=== PATIENT | female | born 1980 | race Caucasian/White ===

== ENCOUNTER 2018-01-23 05:23 | Emergency (ER) | payer BC ==
--- NOTE | 2018-01-23 05:39 | Emergency Department Record ---
History of Present Illness - General Chief Complaint: Chest Pain Stated Complaint: CHEST PAIN Time Seen by Provider: 01/23/18 05:32 Source: Patient Mode of Arrival: Wheelchair Limitations: No limitations - History of Present Illness Initial Comments: 37 yo female presents to ED for evaluation of chest pain symptoms that woke her up from sleep approximately 90 minutes ago. Patient describer her symptoms as "pressure" in the chest, denies shortness of breath or lower extremity edema symptoms. Patient denies fevers, chills, or cough symptoms. Patient denies health problems at her baseline. MD Complaint: Chest pain Onset/Timin -: Minutes(s) Onset: During rest Pain Location: Left chest Severity: Moderate Severity scale (1-10): 5 Quality: Heaviness Consistency: Constant Improves With: Nothing Worsens With: Nothing - Related Data On Oral Contraceptives: No Home Medications Medication Instructions Recorded Confirmed Last Taken Cholecalciferol (Vitamin D3) 5,000 unit PO DAILY 01/23/18 01/23/18 Unknown [Vitamin D3] Allergies Allergy/AdvReac Type Severity Reaction Status Date / Time No Known Drug Allergies Allergy Unverified 01/04/18 14:23 Travel Screening - Travel/Exposure Within Last 30 Days Have you traveled within the last 30 days?: No - Travel/Exposure Within Last Year Have you traveled outside the [place] in the last year?: No - Additonal Travel Details Have you been exposed to anyone with a communicable illness?: No - Travel Symptoms Symptom Screening: None Review of Systems Constitutional: Denies: Chills, Fever, Malaise, Night sweats Eyes: Denies: Eye discharge, Eye pain ENT: Denies: Congestion, Ear pain, Epistaxis Respiratory: Denies: Cough, Dyspnea Cardiovascular: Reports: Chest pain. Denies: Dyspnea on exertion Endocrine: Denies: Fatigue, Heat or cold intolerance Gastrointestinal: Denies: Abdominal pain, Nausea, Vomiting Genitourinary: Denies: Incontinence, Retention Musculoskeletal: Denies: Arthralgia, Back pain, Gout, Joint swelling Skin: Denies: Bruising, Change in color Neurological: Denies: Abnormal gait, Confusion, Headache, Seizure Psychiatric: Denies: Anxiety Hematological/Lymphatic: Denies: Anemia, Blood Clots Past Medical History - SOCIAL HISTORY Smoking Status: Current every day smoker Alcohol Use: Heavy Alcohol Use Comment: 5-6 drinks per day Drug Use: None - RESPIRATORY Hx Respiratory Disorders: No - CARDIOVASCULAR Hx Cardio Disorders: No - NEURO Hx Neuro Disorders: No - GI Hx GI Disorders: No - Hx Genitourinary Disorders: No - ENDOCRINE Hx Endocrine Disorders: No - MUSCULOSKELETAL Hx Musculoskeletal Disorders: No - PSYCH Hx Psych Problems: No - HEMATOLOGY/ONCOLOGY Hx Hematology/Oncology Disorders: No Family Medical History Any Significant Family History?: No Physical Exam - General General Appearance: Alert, Oriented x3, Cooperative, No acute distress, Other ( clinically intoxicated on examination) Limitations: No limitations - Head Head exam: Atraumatic, Normocephalic, Normal inspection Head exam detail: negative: Abrasion, Contusion, Carter's sign, General tenderness, Hematoma, Laceration - Eye Eye exam: Normal appearance. negative: Conjunctival injection, Periorbital swelling, Periorbital tenderness, Scleral icterus - ENT Ear exam: negative: Auricular hematoma, Auricular trauma Nasal Exam: negative: Active bleeding, Discharge, Dried blood, Foreign body Mouth exam: negative: Drooling, Laceration, Tongue elevation - Neck Neck exam: Normal inspection. negative: Meningismus, Tenderness - Respiratory Respiratory exam: Normal lung sounds bilaterally. negative: Rales, Respiratory distress, Rhonchi, Stridor - Cardiovascular Cardiovascular Exam: Regular rate, Normal rhythm, Normal heart sounds - GI/Abdominal GI/Abdominal exam: Soft. negative: Rebound, Rigid, Tenderness - Rectal Rectal exam: Deferred - exam: Deferred - Extremities Extremities exam: Normal inspection. negative: Calf tenderness, Pedal edema, Tenderness - Back Back exam: Denies: CVA tenderness (R), CVA tenderness (L) - Neurological Neurological exam: Alert, Normal gait, Oriented X3 - Psychiatric Psychiatric exam: Normal affect, Normal mood - Skin Skin exam: Normal color. negative: Abrasion Type of lesion: negative: abrasion Course Vital Signs 01/23/18 05:24 Temperature 98.0 F Pulse Rate 104 H Respiratory 20 Rate Blood Pressure 153/89 Pulse Ox 99 - Reevaluation(s) Reevaluation #1: 01/23/18 05:38 EKG: NSR 100 Normal axis, normal intervals No acute ST-T wave changes Reevaluation #2: 01/23/18 06:42 Labs reviewed: Alcohol 0.022 CO2 20 AG 21 Labs are grossly unremarkable for an acute process Patient was updated on all results thus far, will plan on repeat Troponin at 10: 30 this morning. Case was discussed with oncoming provider, will assume care and disposition at this time pending repeat Troponin. Medical Decision Making - Lab Data Result diagrams: 01/23/18 05:45 01/23/18 05:45 Disposition Clinical Impression: Chest pain Qualifiers: Chest pain type: unspecified Qualified Code(s): R07.9 - Chest pain, unspecified Disposition: Home, Self-Care Condition: (2) Stable Instructions: Chest Pain (ED) Forms: Patient Portal Access Quality - Quality Measures Quality Measures: N/A - Blood Pressure Screening Does Patient Have Any of the Following: No Blood Pressure Classification: Pre-Hypertensive BP Reading Systolic Measurement: 153 Diastolic Measurement: 89 Screening for High Blood Pressure: < Pre-Hypertensive BP, F/U Documented > [ G8950] Pre-Hypertensive Follow-up Interventions: Referral to alternative/primary care provider.
[2018-01-23] MEDS: ASPIRIN 81 MG CHEWABLE TABLET PO ONE (05:47)
[2018-01-23 05:52] LABS: BASO % 0.9 % (0-6); EOS % 4.3 % (0-6); GRAN % 53.6 % (47-80); HEMATOCRIT 37.7 % (35.0-47.0); HEMOGLOBIN 12.6 gm/dl (11.6-16.0); LYMPH % 35.6 % (16-45); MEAN CELL VOLUME 98.2 fl (81-97); MEAN CORPUSCULAR HEMOGLOBIN 32.8 pg (27-33); MEAN CORPUSCULAR HGB CONC 33.4 g/dl (32-36); MEAN PLATELET VOLUME 9.9 fl (7.4-10.4); MONO % 5.6 % (0-9); PLATELET COUNT 353 K/uL (130-400); RED BLOOD COUNT 3.84 M/uL (3.80-5.40); RED CELL DISTRIBUTION WIDTH 13.5 % (11.5-14.5); WHITE BLOOD COUNT W/O DIFF 9.3 K/uL (4.2-12.2)
[2018-01-23 06:05] LABS: BILIRUBIN,TOTAL < 0.20 mg/dL (0.2-1.0); BLOOD UREA NITROGEN 7 mg/dL (6-20); CREATININE 0.7 mg/dL (0.5-0.9); EST GLOMERULAR FILTRATION RATE > 60 mL/min
[2018-01-23 06:06] LABS: ALCOHOL 0.022 g/dL (0-0.010); TOTAL PROTEIN 7.1 g/dL (6.6-8.7)
[2018-01-23 06:08] LABS: GLUCOSE,RANDOM 103 mg/dL (74-109)
[2018-01-23 06:10] LABS: ALB/GLOB RATIO 1.2 (1.1-1.8); ALBUMIN 3.9 g/dL (4.0-5.0); ALT/SGPT 11 U/L (<33); AST/SGOT 19 U/L (10.0-35.0)
[2018-01-23 06:11] LABS: ALKALINE PHOSPHATASE 75 U/L (35-104)
--- NOTE | 2018-01-23 07:15 | Emergency Department Record ---
History of Present Illness - General Chief Complaint: Chest Pain Stated Complaint: CHEST PAIN Time Seen by Provider: 01/23/18 05:32 Source: Patient Mode of Arrival: Wheelchair Limitations: No limitations - History of Present Illness Initial Comments: took over from Dr. Boss at 7 am and patient returning from [facility] and she is resting and comfortable and she states some anterior upper left chest pain. reviewed EKG no acute changes. Labs reviewed cardiac enzymes edinson times one and awaiting cardiac lab second set potassium 3.3 and alcohol 0.022. Patient states dull chest pain which started at 4 am and some discomfort in her chest and she had 5 vodka drinks last night. Smokes 1ppd. The pain was reproducible when I raised her left arm up over her head and she works at [employer] and lifts things alot with her arms. Onset/Timin -: Minutes(s) Onset: During rest Pain Location: Left chest Severity: Moderate Severity scale (1-10): 5 Quality: Heaviness Consistency: Constant Improves With: Nothing Worsens With: Nothing - Related Data On Oral Contraceptives: No Home Medications Medication Instructions Recorded Confirmed Last Taken Cholecalciferol (Vitamin D3) 5,000 unit PO DAILY 01/23/18 01/23/18 Unknown [Vitamin D3] Previous Rx's Medication Instructions Recorded Naproxen [Naprosyn] 500 mg PO BID #20 tablet 01/23/18 Allergies Allergy/AdvReac Type Severity Reaction Status Date / Time No Known Drug Allergies Allergy Unverified 01/04/18 14:23 Travel Screening - Travel/Exposure Within Last 30 Days Have you traveled within the last 30 days?: No - Travel/Exposure Within Last Year Have you traveled outside the [place] in the last year?: No - Additonal Travel Details Have you been exposed to anyone with a communicable illness?: No - Travel Symptoms Symptom Screening: None Review of Systems Constitutional: Denies: Chills, Fever, Malaise, Night sweats Eyes: Denies: Eye discharge, Eye pain ENT: Denies: Congestion, Ear pain, Epistaxis Respiratory: Denies: Cough, Dyspnea Cardiovascular: Reports: Chest pain. Denies: Dyspnea on exertion Endocrine: Denies: Fatigue, Heat or cold intolerance Gastrointestinal: Denies: Abdominal pain, Nausea, Vomiting Genitourinary: Denies: Incontinence, Retention Musculoskeletal: Denies: Arthralgia, Back pain, Gout, Joint swelling Skin: Denies: Bruising, Change in color Neurological: Denies: Abnormal gait, Confusion, Headache, Seizure Psychiatric: Denies: Anxiety Hematological/Lymphatic: Denies: Anemia, Blood Clots Past Medical History - SOCIAL HISTORY Smoking Status: Current every day smoker Alcohol Use: Heavy Alcohol Use Comment: 5-6 drinks per day Drug Use: None - RESPIRATORY Hx Respiratory Disorders: No - CARDIOVASCULAR Hx Cardio Disorders: No - NEURO Hx Neuro Disorders: No - GI Hx GI Disorders: No - Hx Genitourinary Disorders: No - ENDOCRINE Hx Endocrine Disorders: No - MUSCULOSKELETAL Hx Musculoskeletal Disorders: No - PSYCH Hx Psych Problems: No - HEMATOLOGY/ONCOLOGY Hx Hematology/Oncology Disorders: No Family Medical History Any Significant Family History?: No Physical Exam - General General Appearance: Alert, Oriented x3, Cooperative, No acute distress Limitations: No limitations - Head Head exam: Normal inspection - Eye Eye exam: Normal appearance, PERRL Pupils: Normal accommodation - ENT ENT exam: Normal exam, Mucous membranes moist, Normal external ear exam, Normal orophraynx, TM's normal bilaterally Ear exam: Normal external inspection. negative: External canal tenderness Nasal Exam: Normal inspection. negative: Discharge, Sinus tenderness Mouth exam: Normal external inspection, Tongue normal Teeth exam: Normal inspection. negative: Dental caries Throat exam: Normal inspection. negative: Tonsillar erythema, Tonsillar exudate - Neck Neck exam: Normal inspection, Full ROM. negative: Tenderness - Respiratory Respiratory exam: Normal lung sounds bilaterally. negative: Respiratory distress - Cardiovascular Cardiovascular Exam: Regular rate, Normal rhythm, Normal heart sounds - GI/Abdominal GI/Abdominal exam: Soft, Normal bowel sounds. negative: Tenderness - Rectal Rectal exam: Deferred - exam: Deferred - Extremities Extremities exam: Normal inspection, Full ROM, Normal capillary refill. negative: Tenderness - Back Back exam: Reports: Normal inspection, Full ROM. Denies: Muscle spasm, Rash noted, Tenderness - Neurological Neurological exam: Alert, Normal gait, Oriented X3, Reflexes normal - Psychiatric Psychiatric exam: Normal affect, Normal mood - Skin Skin exam: Dry, Intact, Normal color, Warm Course Vital Signs 01/23/18 01/23/18 01/23/18 05:24 05:52 06:06 Temperature 98.0 F Pulse Rate 104 H Pulse Rate [ 88 89 [employer] ] Respiratory 20 20 20 Rate Blood Pressure 153/89 Blood Pressure 125/85 130/77 [Left Arm] Pulse Ox 99 99 98 Medical Decision Making - Lab Data Result diagrams: 01/23/18 05:45 01/23/18 05:45 Lab Results 01/23/18 01/23/18 01/23/18 Range/Units 05:35 05:45 05:45 WBC 9.3 (4.2-12.2) K/uL RBC 3.84 (3.80-5.40) M/uL Hgb 12.6 (11.6-16.0) gm/dl Hct 37.7 (35.0-47.0) % MCV 98.2 H (81-97) fl MCH 32.8 (27-33) pg MCHC 33.4 (32-36) g/dl RDW 13.5 (11.5-14.5) % Plt Count 353 (130-400) K/uL MPV 9.9 (7.4-10.4) fl Gran % 53.6 (47-80) % Lymphocytes % 35.6 (16-45) % Monocytes % 5.6 (0-9) % Eosinophils % 4.3 (0-6) % Basophils % 0.9 (0-6) % D-Dimer 0.22 (0-0.59) mg/L FEU Sodium (136-145) mmol/L Potassium (3.4-4.5) mmol/L Chloride (98-107) mmol/L Carbon Dioxide (22-29) mmol/L Anion Gap (7-16) BUN (6-20) mg/dL Creatinine (0.5-0.9) mg/dL Estimated GFR mL/min Random Glucose (74-109) mg/dL Calcium (8.6-10.0) mg/dL Total Bilirubin (0.2-1.0) mg/dL AST (10.0-35.0) U/L ALT (<33) U/L Alkaline Phosphatase (35-104) U/L Troponin T (0-0.010) ng/mL Total Protein (6.6-8.7) g/dL Albumin (4.0-5.0) g/dL Globulin (1.4-4.8) gm/dL Albumin/Globulin Ratio (1.1-1.8) Ethyl Alcohol Cancelled 05/02/18 Range/Units 05:45 WBC (4.2-12.2) K/uL RBC (3.80-5.40) M/uL Hgb (11.6-16.0) gm/dl Hct (35.0-47.0) % MCV (81-97) fl MCH (27-33) pg MCHC (32-36) g/dl RDW (11.5-14.5) % Plt Count (130-400) K/uL MPV (7.4-10.4) fl Gran % (47-80) % Lymphocytes % (16-45) % Monocytes % (0-9) % Eosinophils % (0-6) % Basophils % (0-6) % D-Dimer (0-0.59) mg/L FEU Sodium 145 (136-145) mmol/L Potassium 3.3 L (3.4-4.5) mmol/L Chloride 104 (98-107) mmol/L Carbon Dioxide 21.0 L (22-29) mmol/L Anion Gap 20.0 H (7-16) BUN 7 (6-20) mg/dL Creatinine 0.7 (0.5-0.9) mg/dL Estimated GFR > 60 mL/min Random Glucose 103 (74-109) mg/dL Calcium 8.7 (8.6-10.0) mg/dL Total Bilirubin < 0.20 L (0.2-1.0) mg/dL AST 19 (10.0-35.0) U/L ALT 11 (<33) U/L Alkaline Phosphatase 75 (35-104) U/L Troponin T < 0.010 (0-0.010) ng/mL Total Protein 7.1 (6.6-8.7) g/dL Albumin 3.9 L (4.0-5.0) g/dL Globulin 3.2 (1.4-4.8) gm/dL Albumin/Globulin Ratio 1.2 (1.1-1.8) Ethyl Alcohol 0.022 H Disposition Clinical Impression: Anterior chest wall pain Chest pain Qualifiers: Chest pain type: unspecified Qualified Code(s): R07.9 - Chest pain, unspecified Disposition: Home, Self-Care Condition: (2) Stable Instructions: Chest Pain (ED), Chest Wall Pain (ED) Additional Instructions: follow up with family in one week Prescriptions: Naproxen [Naprosyn] 500 mg PO BID #20 tablet Forms: Patient Portal Access Time of Disposition: 09:58 Quality - Quality Measures Quality Measures: N/A - Blood Pressure Screening Does Patient Have Any of the Following: No Blood Pressure Classification: Pre-Hypertensive BP Reading Systolic Measurement: 153 Diastolic Measurement: 89 Screening for High Blood Pressure: < Pre-Hypertensive BP, F/U Documented > [ G8950] Pre-Hypertensive Follow-up Interventions: Referral to alternative/primary care provider.
--- NOTE | 2018-01-23 14:23 | RADIOLOGY REPORT ---
EXAM: CHEST, TWO VIEWS HISTORY: MID CHEST PAIN BEGINNING ABOUT THREE HOURS EARLIER. TECHNIQUE: PA and lateral views of the chest were obtained. Comparison: None. FINDINGS: The heart size is normal. The lungs appear expanded with no acute infiltrate seen. No pleural effusion or pneumothorax evident. IMPRESSION: NEGATIVE CHEST EXAMINATION. JOB NUMBER: [id number] MTDD
== END 2018-01-23 10:25 | disposition home or self-care (01) ==
LOC: ER 05:23
DX: R07.89 Other chest pain (principal); F17.210 Nicotine dependence, cigarettes, uncomplicated
CPT/HCPCS: 99284 ×2; 85025; 80053; 84484; 85379; 71046; 93005; 93010; G0480; 80320